=== PATIENT | male | born 1970 | race African-American/Black ===

== ENCOUNTER 2025-10-20 21:54 | Emergency (ER) | payer MEDICAID ==
[~2025-10-20] VITALS: Ht 185.4 cm; Wt 84.0 kg
[~2025-10-20 21:54] MED LIST: LEXAPRO
[2025-10-20 22:06] VITALS: O2SAT 100
[2025-10-20] MEDS ORDERED: KETOROLAC 15MG/ML VIAL IV ONE (22:45)
[2025-10-20 23:21] LABS: BASOPHILS % 0.6 % (0.0-2.0); EOSINOPHILS % 2.6 % (0.0-5.0); HEMATOCRIT. 40.3 % (42.0-52.0); HEMOGLOBIN. 12.8 g/dL (14.0-18.0); LYMPHOCYTES % 30.5 % (20.0-50.0); MEAN PLATELET VOLUME 7.1 fl (7.4-10.4); MONOCYTES % 8.8 % (2.0-8.0); NEUTROPHILS % 57.5 % (40.0-76.0); PLATELET 335 x1000/uL (130-400); RED BLOOD CELL COUNT 4.41 mill/uL (4.7-6.1); RED CELL DISTRIBUTION WIDTH 13.8 % (11.6-14.6)
[2025-10-20 23:27] LABS: CLARITY URINE CLEAR (CLEAR); COLOR URINE YELLOW (YELLOW); GLUCOSE URINE NEGATIVE (NEGATIVE); KETONES URINE NEGATIVE (NEGATIVE); LEUKOCYTE ESTERASE URINE NEGATIVE (NEGATIVE); NITRITE URINE NEGATIVE (NEGATIVE); OCCULT BLOOD URINE NEGATIVE (NEGATIVE); PH URINE 5.5 (4.5-8.0); PROTEIN URINE NEGATIVE (NEGATIVE); SPECIFIC GRAVITY URINE 1.013 (1.005-1.030); UROBILINOGEN URINE 0.2 E.U./dL (0.2-1.0)
[2025-10-20 23:31] LABS: CREATININE 1.4 mg/dL (0.6-1.3); UREA NITROGEN BLOOD 10 mg/dL (9-23)
[2025-10-20 23:33] LABS: ETHANOL BLOOD 39 mg/dL (<10); PROTEIN TOTAL 6.5 g/dL (6.0-8.3)
[2025-10-20 23:34] LABS: ASPARTATE AMINOTRANSFERASE 20 IU/L (<34); BILIRUBIN DIRECT < 0.1 mg/dL (<=3.0); BILIRUBIN TOTAL 0.2 mg/dL (0.1-1.0)
[2025-10-20 23:43] LABS: *AMPHETAMINES SCREEN URINE PRESUMPTIVE POSITIVE (NEGATIVE); *BARBITURATES SCREEN URINE NEGATIVE (NEGATIVE); *BENZODIAZEPINES SCREEN URINE NEGATIVE (NEGATIVE); *COCAINE SCREEN URINE NEGATIVE (NEGATIVE); METHADONE URINE SCREEN NEGATIVE (NEGATIVE)
[2025-10-20 23:44] LABS: CANNABINOID URINE SCREEN NEGATIVE (NEGATIVE); ECSTASY MDMA SCREEN URINE NEGATIVE (NEGATIVE); OPIATES URINE SCREEN NEGATIVE (NEGATIVE); PHENCYCLIDINE URINE SCREEN PRESUMTIVE POSITIVE (NEGATIVE)
[2025-10-21] MEDS: ONDANSETRON HCL 4MG/2ML INJ IV ONE (00:33)
[2025-10-21] MEDS: SODIUM CHLORIDE 0.9% 1,000 ML IV ONE (00:33)
[2025-10-21] MEDS: KETOROLAC 15MG/ML VIAL IV NR (00:45)
[2025-10-21] MEDS ORDERED: HYDROXYZINE 25MG TABLET PO PRN (11:45)
[2025-10-21 14:50] VITALS: BP 138/87; PULSE 92; RESP 18; TEMP 36.8; O2SAT 100
[2025-10-21] MEDS ORDERED: OLANZAPINE 5MG TABLET ODT PO SCH (21:00)
[2025-10-21] MEDS ORDERED: TRAZODONE HCL 50MG TABLET PO SCH (21:00)
== END 2025-10-21 15:15 ==
LOC: ER 21:54
DX: R45.851 Suicidal ideations (principal); R10.9 Unspecified abdominal pain; R31.9 Hematuria, unspecified; F10.129 Alcohol abuse with intoxication, unspecified; F15.129 Other stimulant abuse with intoxication, unspecified; Z20.822 Contact with and (suspected) exposure to COVID-19; Z79.899 Other long term (current) drug therapy; Y90.9 Presence of alcohol in blood, level not specified
CPT/HCPCS: 80076; 80305; 80048; 81003; 80307; 80329; 80320; 83690; 85025; 87086; 36415; 71045; 74176; 93005; 99285; 96361; 96374; 96375; 87426; J7030; J1885; J2405; G0480